=== PATIENT | male | born 1960 | race Hispanic/Latino ===

== ENCOUNTER 2022-02-18 06:29 | Observation (INO) | payer BC ==
[2022-02-17 09:43] LABS: BASOPHILS % 0.4 % (0.0-1.0); EOSINOPHILS % 0.4 % (0.0-6.0); HEMOGLOBIN 17.7 g/dL (14.0-18.0); LYMPHOCYTES # (AUTO) 2.3 (1.0-3.2); LYMPHOCYTES % 46.5 % (18.0-39.1); MEAN CORPUSCULAR HEMOGLOBIN 27.8 pg (28-32); MEAN CORPUSCULAR HGB CONC 31.6 g/dL (31-35); MEAN CORPUSCULAR VOLUME 88.1 fL (81-99); MONOCYTES # (AUTO) 0.5 (0.2-0.8); MONOCYTES % 10.9 % (4.4-11.3); NEUTROPHILS % 41.8 % (38.7-80.0); PLATELET COUNT 212 x10e3/uL (140-360); RED BLOOD COUNT 6.36 x10e6/uL (4.3-5.7); RED CELL DISTRIBUTION WIDTH 16.4 % (11.7-14.4)
[2022-02-17 10:08] LABS: ANION GAP 16.3 mmol/L (8-16); CALCIUM 9.4 mg/dL (8.4-10.2); CREATININE, SERUM 1.02 mg/dL (0.72-1.25); POTASSIUM 5.3 mmol/L (3.5-5.1)
[2022-02-17 10:10] LABS: INR 0.91; PROTHROMBIN TIME 13.1 seconds (11.9-14.5)
[~2022-02-18] VITALS: Ht 182.9 cm; Wt 108.4 kg
[~2022-02-18 06:29] MED LIST: ARIMIDEX1 MG PO; ARMOUR THYROID60 MG PO; GLIPIZIDE5 MG PO; LIDOCAINE 2% /EPINEPHRINE 20 ML SDV INJ ONE; LIPITOR10 MG PO; TESTOSTERO100 MG/1 M INJ; THROMBIN FOR SOLN 5,000 UNIT VIAL ONE; TOUJEO MAX300 UNIT/1 SC; Vancomycin IV 1 GM VIAL ONE; XIGDUO XR 10 M1 EAC1 PO; ZESTRIL10 MG PO
[2022-02-18] MEDS ORDERED: CARISOPRODOL 350 MG TAB PO PRN (09:15)
[2022-02-18] MEDS ORDERED: ONDANSETRON HCL INJ 2MG/ML 2ML 2 MG/ML VIAL IV PRN (09:15)
[2022-02-18] MEDS ORDERED: ACETAMINOPHEN 325 MG TAB PO PRN (09:15)
[2022-02-18] MEDS ORDERED: Morphine 4mg INJECTION 4 MG/ML INJ IM PRN (09:15)
[2022-02-18] MEDS ORDERED: MAGNESIUM/ALUMINUM/SIMETHICONE 30 ML UDC PO PRN (09:15)
[2022-02-18] MEDS ORDERED: PROMETHAZINE HCL (IM) 25 MG/ML VIAL IM PRN (09:15)
[2022-02-18] MEDS ORDERED: ZOLPIDEM TARTRATE 5 MG TAB PO PRN (09:15)
[2022-02-18] MEDS ORDERED: OXYCODONE/ACETAMINOPHEN 5-325 1 EACH TABLET PO PRN (09:15)
[2022-02-18] MEDS ORDERED: LACTATED RINGER'S 1,000 ML IV SCH (09:15)
[2022-02-18] MEDS ORDERED: HYDROMORPHONE 2MG/ML 2 MG/ML ML IV PRN (09:15)
[2022-02-18] MEDS ORDERED: CEPACOL SORE THROAT LOZENGES PO PRN (09:15)
[2022-02-18] MEDS ORDERED: HYDROCODON-ACE1 EA12 PO (09:17)
[2022-02-18 10:55] VITALS: BP 151/99
[2022-02-18 10:57] VITALS: BP 151/99
[2022-02-18] MEDS: LACTATED RINGER'S 1,000 ML IV SCH ×2 (14:08→21:30)
[2022-02-18] MEDS ORDERED: ONDANSETRON HCL INJ 2MG/ML 2ML 2 MG/ML VIAL ONE (15:13)
[2022-02-18] MEDS ORDERED: IBUPROFEN 800 MG/200 ML BAG IV ONE (15:13)
[2022-02-18] MEDS ORDERED: POVIDONE IODINE 0.05% 0.05 % ML PO ONE (15:13)
[2022-02-18] MEDS ORDERED: SEVOFLURANE INHAL SOLN 250 ML PEN BTL ONE (15:13)
[2022-02-18] MEDS ORDERED: ROCURONIUM BROMIDE 10 MG/ML 5ML VIAL IV ONE (15:13)
[2022-02-18] MEDS ORDERED: PROPOFOL IV EMULSION 10 MG/ML 20 ML VIAL ONE (15:13)
[2022-02-18] MEDS ORDERED: LIDOCAINE HCL (LTA) 4 ML SOLN ONE (15:13)
[2022-02-18] MEDS ORDERED: LIDOCAINE HCL 2% LOCAL INJ 5 ML SDV VIAL INJ ONE (15:13)
[2022-02-18] MEDS ORDERED: SUGAMMADEX SODIUM 200 MG/2 ML VIAL IV ONE (15:13)
[2022-02-18] MEDS ORDERED: ACETAMINOPHEN 1000 MG/100 ML IV ONE (15:13)
[2022-02-18] MEDS ORDERED: DEXAMETHASONE SOD PHOS INJ 4 MG/ML SDV ONE (15:13)
[2022-02-18 16:27] VITALS: BP 153/86
[2022-02-18 20:00] VITALS: BP 144/89
[2022-02-18 20:33] VITALS: BP 144/89
[2022-02-18] MEDS ORDERED: ATORVASTATIN 20 MG TAB PO SCH (21:00)
[2022-02-18] MEDS ORDERED: LISINOPRIL 10 MG TAB PO SCH (21:00)
[2022-02-18] MEDS ORDERED: INSULIN GLARGINE HUM REC ANLOG 60 UNIT SC SCH (21:00)
[2022-02-18] MEDS ORDERED: INSULIN GLARGINE 100 UNITS/ML VIAL SQ SCH (21:00)
[2022-02-18] MEDS ORDERED: [UNRECOGNIZED DRUG - OTHER] SC SCH (21:00)
[2022-02-19] VITALS: BP 134/80
[2022-02-19 04:00] VITALS: BP 136/75
[2022-02-19] MEDS: LACTATED RINGER'S 1,000 ML IV SCH (05:10)
[2022-02-19] MEDS ORDERED: THYROID 60 MG TAB PO SCH (06:00)
[2022-02-19] MEDS ORDERED: GLIPIZIDE 5 MG TAB PO SCH (07:30)
[2022-02-19] MEDS ORDERED: METFORMIN HCL 500 MG TAB PO SCH (07:30)
[2022-02-19 08:30] VITALS: BP 129/83
[2022-02-19 09:10] VITALS: BP 129/83
== END 2022-02-19 10:00 | disposition home or self-care (01) ==
LOC: OR 06:29 → PACU V 09:14 → MED/SURG 10:11
PROVIDERS: ADMIT Neurological Surgery; ATTEND Neurological Surgery
DX: M50.120 Mid-cervical disc disorder, unspecified level (principal); Z20.822 Contact with and (suspected) exposure to COVID-19; Z01.818 Encounter for other preprocedural examination; E11.9 Type 2 diabetes mellitus without complications; E03.9 Hypothyroidism, unspecified; I10 Essential (primary) hypertension; E78.00 Pure hypercholesterolemia, unspecified
CPT/HCPCS: 0223U; 20931; 22551; 22552; 22845; 36415 ×3; 71046; 76000; 80048; 82948 ×2; 85025; 85610; 85730; 86850; 86900; 88304; 88311; 93005; C1713 ×6; C1763; G0378 ×2; J0131; J0690 ×2; J1100; J1815; J2001 ×2; J2405; J2704; J3370; J7121

== ENCOUNTER → 2022-03-15 | Outpatient (CLI) | payer BC ==
[~2022-03-15] MED LIST changes: +HYDROCODON-ACE1 EA12 PO; -LIDOCAINE 2% /EPINEPHRINE 20 ML SDV INJ ONE; -THROMBIN FOR SOLN 5,000 UNIT VIAL ONE; -Vancomycin IV 1 GM VIAL ONE
== END ==
LOC: RAD 10:01
PROVIDERS: ATTEND Neurological Surgery
DX: M50.20 Other cervical disc displacement, unspecified cervical region (principal); M43.22 Fusion of spine, cervical region
CPT/HCPCS: 72050

== ENCOUNTER → 2022-09-10 | Outpatient (CLI) | payer BC | LOC: RAD 09:16 | PROVIDERS: ATTEND Neurological Surgery | DX: M50.20 Other cervical disc displacement, unspecified cervical region (principal); M43.22 Fusion of spine, cervical region | CPT/HCPCS: 72050 ==